=== PATIENT | female | born 1985 | race Asian ===

== ENCOUNTER 2019-01-30 16:28 | Emergency (ER) | payer OTHER ==
[~2019-01-30] VITALS: Ht 162.6 cm; Wt 96.6 kg
[2019-01-30 16:30] VITALS: Ht 162.6 cm; Wt 96.6 kg
[2019-01-30 17:04] VITALS: BP 116/69
== END 2019-01-30 17:04 | disposition home or self-care (01) ==
LOC: ED 16:28
DX: M54.5 Low back pain (principal); G89.29 Other chronic pain